=== PATIENT | female | born 1970 | race Caucasian/White ===

== ENCOUNTER 2024-05-06 16:40 | Outpatient (CLI) | payer OTHER, SELFPAY | END 2024-05-06 16:41 | disposition home or self-care (01) | PROVIDERS: PCP Registered Nurse; Visit Provider Registered Nurse | DX: D64.9 Anemia, unspecified (principal); R53.83 Other fatigue; E66.811 Obesity, class 1; N95.1 Menopausal and female climacteric states; Z13.6 Encounter for screening for cardiovascular disorders; Z13.1 Encounter for screening for diabetes mellitus | CPT/HCPCS: 80048; 80061; 84443 ==

== ENCOUNTER 2024-05-13 09:38 | Outpatient (CLI) | payer OTHER, SELFPAY ==
--- NOTE | 2024-05-13 09:45 | CRLHL7_ITS ---
For Patients: As a result of the Century Cures Act, medical imaging exams and procedure reports are released immediately into your electronic medical record. You may view this report before your referring provider. If you have questions, please contact your health care provider. BILATERAL SCREENING MAMMOGRAM WITH COMPUTER-AIDED DETECTION AND TOMOSYNTHESIS TECHNIQUE: CC and MLO views were obtained. These mammographic images have been obtained using full-field digital technique. These mammographic images were interpreted with the benefit of computer-aided detection. Breast Tomosynthesis was used in this interpretation. COMPARISON FILM: 02/13/23, 01/13/22, 06/28/11. FINDINGS: The breasts are heterogeneously dense, which may obscure small masses IMPRESSION: There is no radiographic evidence for malignancy. ASSESSMENT: BI-RADS Category 1: Negative RECOMMENDATION: Routine screening mammogram in 1 year. A lay language report of this examination will be provided to the patient. Iggy Velez M.D. Diagnostic Radiologist [email or web address] MERCED/razia / bM/Dictated by: Iggy Velez MD @ 05/16/2024 8:11:00 AM (Electronically Signed)
== END 2024-05-13 09:39 | disposition home or self-care (01) ==
LOC: MAMMO 09:38
PROVIDERS: PCP Registered Nurse; Visit Provider Registered Nurse
DX: Z12.31 Encounter for screening mammogram for malignant neoplasm of breast (principal); R92.333 Mammographic heterogeneous density, bilateral breasts
CPT/HCPCS: 77063; 77067

== ENCOUNTER 2025-02-19 09:59 | Outpatient (CLI) | payer OTHER, SELFPAY | END 2025-02-19 10:00 | disposition home or self-care (01) | PROVIDERS: PCP Family Medicine; Visit Provider Podiatrist | DX: M79.672 Pain in left foot (principal) | CPT/HCPCS: 82306; 82310 ==

== ENCOUNTER 2025-05-12 18:34 | Outpatient (CLI) | payer OTHER, SELFPAY | END 2025-05-12 18:35 | disposition home or self-care (01) | PROVIDERS: PCP Family Medicine; Visit Provider Physician Assistant | DX: R63.5 Abnormal weight gain (principal); Z68.32 Body mass index [BMI] 32.0-32.9, adult | CPT/HCPCS: 83001; 84443 ==